=== PATIENT | male | born 1990 | race Caucasian/White ===

== ENCOUNTER 2017-11-22 18:19 | Emergency (ER) | payer OTHER ==
[2017-11-22] MEDS ORDERED: MAG HYDROX/AL HYDROX/SIMETH SUSP 30 ML UDCUP PO ONE (19:15)
[2017-11-22] MEDS ORDERED: LIDOCAINE 2% VISCOUS SOLN 20 ML UDCUP PO ONE (19:15)
--- NOTE | 2017-11-22 19:17 | ER Document Report ---
ED Medical Screen (RME) - General Chief Complaint: Epigastric pain, N/V Stated Complaint: STOMACH PAIN Time Seen by Provider: 11/22/17 19:08 Notes: 27-year-old male patient with epigastric discomfort off and on for the past 2 years and constant for the past 2 days. He does take Zantac 150 mg twice daily for his GERD. He did have his gallbladder removed in 2012. Brief exam shows epigastric tenderness although he claims the pain is up under the ribs on the right, palpating right upper quadrant and under the right lateral ribs is not uncomfortable or painful, but palpating the epigastric region is quite tender. He will be given a GI cocktail for his symptoms for its diagnostic and therapeutic effect. Work will be done to exclude something such as pancreatitis as the cause of his worsening pain. I have greeted and performed a rapid initial assessment of this patient. A comprehensive ED assessment and evaluation of the patient, analysis of test results and completion of the medical decision making process will be conducted by additional ED providers. TRAVEL OUTSIDE OF THE [place] IN LAST 30 DAYS: No - Related Data Allergies/Adverse Reactions: No Known Allergies Allergy (Unverified 11/22/17 18:24) Home Medications: Current Home Medications Ranitidine HCl 150 mg PO BID 11/22/17 [History] Past Medical History - Social History Chew tobacco use (# tins/day): Yes Frequency of alcohol use: Social Drug Abuse: None Renal/ Medical History: Denies: Hx Peritoneal Dialysis GI Medical History: Reports: Hx Gastroesophageal Reflux Disease Past Surgical History: Reports: Hx Abdominal Surgery Physical Exam - Vital signs Vitals: Temp Pulse Resp BP Pulse Ox 98.9 F 61 16 147/80 H 100 11/22/17 18:27 11/22/17 18:27 11/22/17 18:27 11/22/17 18:27 11/22/17 18:27 Course - Vital Signs Vital signs: Temp Pulse Resp BP Pulse Ox 98.9 F 61 16 147/80 H 100 11/22/17 18:27 11/22/17 18:27 11/22/17 18:27 11/22/17 18:27 11/22/17 18:27
[2017-11-22 20:09] LABS: ABSOLUTE BASOPHILS # (AUTO) 0.1 10^3/uL (0.0-0.2); ABSOLUTE EOSINOPHILS # (AUTO) 0.1 10^3/uL (0.0-0.6); ABSOLUTE LYMPHOCYTES (AUTO) 1.8 10^3/uL (0.5-4.7); ABSOLUTE MONOCYTES (AUTO) 0.8 10^3/uL (0.1-1.4); ABSOLUTE NEUT (AUTO) 10.2 10^3/uL (1.7-8.2); BASOPHILS % (AUTO) 0.4 % (0-2); HEMATOCRIT 44.8 % (37.9-51.0); HEMOGLOBIN 15.2 g/dL (13.5-17.0); LYMPHOCYTES % (AUTO) 13.7 % (13-45); MEAN CORPUSCULAR HEMOGLOBIN 31.3 pg (27.0-33.4); MEAN CORPUSCULAR HGB CONC 33.9 g/dL (32.0-36.0); MEAN CORPUSCULAR VOLUME 92 fl (80-97); MONOCYTES % (AUTO) 6.4 % (3-13); PLATELET COUNT 326 10^3/uL (150-450); RED BLOOD COUNT 4.86 10^6/uL (4.35-5.55); RED CELL DISTRIBUTION WIDTH 13.4 % (11.5-14.0); SEGMENTED NEUTROPHILS % (AUTO) 78.5 % (42-78); TOTAL CELLS COUNTED % (AUTO) 100 %
[2017-11-22 20:24] LABS: ALANINE AMINOTRANSFERASE 551 U/L (21-72); ALBUMIN 4.7 g/dL (3.5-5.0); ALKALINE PHOSPHATASE 153 U/L (38-126); ANION GAP 14 (5-19); ASPARTATE AMINO TRANSFERASE 506 U/L (17-59); BILIRUBIN,DIRECT 1.1 mg/dL (0.0-0.4); BILIRUBIN,TOTAL 1.6 mg/dL (0.2-1.3); BLOOD UREA NITROGEN 12 mg/dL (7-20); CALCIUM 9.9 mg/dL (8.4-10.2); CARBON DIOXIDE 26 mmol/L (22-30); CHLORIDE 105 mmol/L (98-107); GLUCOSE 115 mg/dL (75-110); LIPASE 61.3 U/L (23-300); POTASSIUM 4.4 mmol/L (3.6-5.0); SODIUM 144.7 mmol/L (137-145); TOTAL PROTEIN 7.8 g/dL (6.3-8.2)
--- NOTE | 2017-11-22 20:50 | ER Document Report ---
ED GI/ - General Chief Complaint: Epigastric pain, N/V Stated Complaint: STOMACH PAIN Time Seen by Provider: 11/22/17 19:08 Mode of Arrival: Ambulatory Information source: Patient TRAVEL OUTSIDE OF THE [place] IN LAST 30 DAYS: No - HPI Patient complains to provider of: Abdominal pain, Vomiting Onset: Yesterday Timing/Duration: Gradual Quality of pain: Cramping, Dull Severity at maximum: Moderate Severity in ED: Moderate Context: denies: Bad food, Lifting, Out of the country travel, , Recent trauma Location: Epigastric, RUQ Associated symptoms: Chills, Nausea, Vomiting. denies: Blood in emesis, Constipation, Diarrhea, Fever Exacerbated by: Movement, Deep breathing, Other - G.I. COCKTAIL GIVEN @ [employer] Relieved by: Denies Similar symptoms previously: Yes - PRIOR TO GB REMOVAL, ANF INFREQUENTLY SINCE. Recently seen / treated by doctor: No - Related Data Allergies/Adverse Reactions: No Known Allergies Allergy (Unverified 11/22/17 18:24) Home Medications: Current Home Medications Ranitidine HCl 150 mg PO BID 11/22/17 [History] Past Medical History - General Information source: Patient - Social History Smoking Status: Current Every Day Smoker Chew tobacco use (# tins/day): Yes Frequency of alcohol use: Social Drug Abuse: None Lives with: Spouse/Significant other Family History: None Patient has suicidal ideation: No Patient has homicidal ideation: No - Past Medical History Cardiac Medical History: Reports: None Pulmonary Medical History: Reports: None EENT Medical History: Reports: None Neurological Medical History: Reports: None Endocrine Medical History: Reports: None Renal/ Medical History: Reports: None. Denies: Hx Peritoneal Dialysis Malignancy Medical History: Reports None GI Medical History: Reports: Hx Gastroesophageal Reflux Disease. Denies: Hx Cirrhosis, Hx Hepatitis, Hx Liver Failure, Hx Pancreatitis Musculoskeltal Medical History: Reports None Psychiatric Medical History: Reports: None Past Surgical History: Reports: Hx Abdominal Surgery, Hx Cholecystectomy - LAPAROSCOPIC Review of Systems - Review of Systems Constitutional: See HPI, Chills EENT: No symptoms reported Cardiovascular: No symptoms reported Respiratory: No symptoms reported Gastrointestinal: See HPI Genitourinary: No symptoms reported Musculoskeletal: No symptoms reported Skin: No symptoms reported Neurological/Psychological: No symptoms reported Physical Exam - Vital signs Vitals: Temp Pulse Resp BP Pulse Ox 98.9 F 61 16 147/80 H 100 11/22/17 18:27 11/22/17 18:27 11/22/17 18:27 11/22/17 18:27 11/22/17 18:27 Interpretation: Normal. No: Tachycardic, Tachypneic, Febrile - General General appearance: Appears well In distress: None - HEENT Head: Normocephalic Eyes: Normal Conjunctiva: Normal. No: Icteric Ears: Normal Nasal: Normal Mouth/Lips: Normal Mucous membranes: Normal Pharynx: Normal Neck: Normal - Respiratory Respiratory status: No respiratory distress Breath sounds: Normal - Cardiovascular Rhythm: Regular Heart sounds: Normal auscultation Murmur: No - Abdominal Inspection: Normal, Obese Distension: No distension Bowel sounds: Hypoactive Tenderness: Tender - UNDER RCM - Back Back: Normal - Extremities General upper extremity: Normal inspection General lower extremity: Normal inspection - Neurological Neuro grossly intact: Yes Cognition: Normal Orientation: AAOx4 - Psychological Associated symptoms: Normal affect, Normal mood - Skin Skin Temperature: Warm Skin Moisture: Dry Skin Color: Normal Skin Turgor: Elastic Course - Vital Signs Vital signs: Temp Pulse Resp BP Pulse Ox 98.9 F 57 L 16 141/79 H 99 11/22/17 18:27 11/22/17 22:26 11/22/17 22:26 11/22/17 22:26 11/22/17 22:26 - Laboratory Result Diagrams: 11/22/17 19:45 11/22/17 19:45 Laboratory results interpreted by me: 11/22/17 11/22/17 19:45 19:45 WBC 13.0 H Seg Neutrophils % 78.5 H Absolute Neutrophils 10.2 H Glucose 115 H Total Bilirubin 1.6 H Direct Bilirubin 1.1 H AST 506 H ALT 551 H Alkaline Phosphatase 153 H Discharge - Discharge Clinical Impression: Abnormal liver function tests Abdominal pain Qualifiers: Abdominal location: epigastric Qualified Code(s): R10.13 - Epigastric pain Vomiting Qualifiers: Vomiting type: unspecified Vomiting Intractability: non-intractable Nausea presence: with nausea Qualified Code(s): R11.2 - Nausea with vomiting, unspecified Condition: Stable Disposition: HOME, SELF-CARE Instructions: Abdominal Pain ([facility]), Antinausea Medication ([facility]), Oral Narcotic Medication ([facility]), Liver Function Abnormality ([facility]), Low-Fat Diet ([facility]) Additional Instructions: REST, DRINK PLENTY OF FLUIDS. EAT A LOW-FAT, HIGH-CARBOHYDRATE DIET. TAKE RANITIDINE, 150 mg TWICE A DAY. YOU MAY TAKE ZOFRAN FOR NAUSEA CONTROL IF NEEDED. YOU MAY TAKE DILAUDID IF NEEDED FOR PAIN CONTROL, OR IBUPROFEN FOR LESS SEVERE PAIN. FOLLOW UP WITH DR. PHELPS OR DR. DELATORRE OR DR. BACH, CALL TOMORROW TO SET UP APPOINTMENT. RETURN TO E.R. IF PROBLEMS, ANY TIME. Prescriptions: Hydromorphone HCl [Dilaudid 2 Mg Tablet] 2 mg PO Q4HP PRN #10 tablet PRN Reason: For Pain Forms: Return to Work Referrals: BOB PHELPS MD [ACTIVE STAFF] - Follow up as needed CHANDLER DELATORRE MD [ACTIVE STAFF] - Follow up as needed TERRI JESUS MD [ACTIVE STAFF] - Follow up as needed
--- NOTE | 2017-11-22 21:49 | RADIOLOGY REPORT (SQ) ---
EXAM DESCRIPTION: U/S ABDOMEN LIMITED W/O DOP COMPLETED DATE/TIME: 11/22/2017 9:35 pm REASON FOR STUDY: RUQ, s/p choley, markedly elevated LFT's, RUQ pain COMPARISON: None. TECHNIQUE: Dynamic and static grayscale images acquired of the abdomen and recorded on PACS. Additio nal selected color Doppler and spectral images recorded. LIMITATIONS: Limiting body habitus. FINDINGS: PANCREAS: Pancreas not well demonstrated. No gross regional mass or fluid detected. LIVER: Borderline enlarged, just under 19 cm. Dense echogenic tissue throughout suggests steatosis. No gross mass, however back ground fatty change and suboptimal penetration with ultrasound limits. LIVER VASCULATURE: Normal directional flow of the main portal vein and hepatic veins. GALLBLADDER: Surgically absent. ULTRASOUND-DETECTED URIARTE'S SIGN: Not applicable. INTRAHEPATIC DUCTS AND COMMON DUCT: CBD and intrahepatic ducts normal caliber. No filling defects. INFERIOR VENA CAVA: Normal flow. AORTA: No aneurysm. RIGHT KIDNEY: Normal size. Normal echogenicity. No solid or suspicious masses. No hydronephrosis. No calcifications. PERITONEAL AND RIGHT PLEURAL SPACE: No ascites or effusions. OTHER: No other significant findings. IMPRESSION: Limited study reveals status post cholecystectomy without gross duct dilatation. Fatty prominent liver. TECHNICAL DOCUMENTATION: JOB ID: [id number] [employer]- All Rights Reserved
[2017-11-22] MEDS ORDERED: ONDANSETRON 4 MG TAB.RAPDIS PO ONE (22:23)
[2017-11-22] MEDS ORDERED: HYDROMORPHONE HCL INJ/PF 2 MG/ML AMPULE IV ONE (22:23)
[2017-11-22] MEDS ORDERED: HYDROMORPHONE HCL 2 MG TABLET PO ONE ×2 (22:28→23:26)
[2017-11-22] MEDS ORDERED: ONDANSETRON ODT 4 MG TAB (6 TAB/ER DISP) PO PRN (23:20)
[2017-11-22 23:45] VITALS: BP 132/76
[2017-11-24 05:39] LABS: HEPATITIS A AB IGM Negative (Negative); HEPATITIS B CORE AB IGM Negative (Negative); HEPATITS B SURFACE ANTIGEN Negative (Negative)
[2017-11-24 07:39] LABS: HEPATITIS C VIRUS ANTIBODY <0.1 s/co ratio (0.0-0.9)
== END 2017-11-22 23:45 | disposition home or self-care (01) ==
LOC: ER 18:19
DX: R10.13 Epigastric pain (principal); R10.11 Right upper quadrant pain; R11.2 Nausea with vomiting, unspecified; R79.89 Other specified abnormal findings of blood chemistry; R68.83 Chills (without fever); F17.200 Nicotine dependence, unspecified, uncomplicated; Z90.49 Acquired absence of other specified parts of digestive tract
CPT/HCPCS: 99284; 36415; 83690; 85025; 80053; 80074; 76705; S0119; J3490

== ENCOUNTER 2019-12-27 11:32 | Emergency (ER) | payer SELFPAY ==
--- NOTE | 2019-12-27 13:34 | ER Document Report ---
HPI - HPI Patient complains to provider of: Left foot pain Time Seen by Provider: 12/27/19 13:30 Onset: Yesterday Onset/Duration: Gradual Quality of pain: Achy Pain Level: 4 Context: Patient presents complaining of left foot pain to the first metatarsal. Patient denies any fever or known injury. Patient does have a history of gout and suspects the same today. Associated Symptoms: Other. denies: Fever Exacerbated by: Movement, Walking Relieved by: Denies Similar symptoms previously: Yes Recently seen / treated by doctor: No - ROS ROS below otherwise negative: Yes Systems Reviewed and Negative: Yes All other systems reviewed and negative - CONSTITUTIONAL Constitutional: DENIES: Fever, Chills - GASTROINTESTINAL Gastrointestinal: DENIES: Nausea - MUSCULOSKELETAL Musculoskeletal: REPORTS: Extremity pain, Swelling - DERM Skin Color: Erythema Skin Problems: None Past Medical History - General Information source: Patient - Social History Smoking Status: Current Every Day Smoker Frequency of alcohol use: Occasional Drug Abuse: None 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 IN LAST 30 DAYS: No - HEENT HEENT: Atraumatic, Normocephalic - NECK Neck: Normal Inspection, Supple - RESPIRATORY Respiratory: Breath Sounds Normal, No Respiratory Distress - CARDIOVASCULAR Cardiovascular: Regular Rate, Regular Rhythm Pulses: Normal: Dorsalis pedis - BACK Back: Normal Inspection - MUSCULOSKELETAL/EXTREMETIES Musculoskeletal/Extremeties: MAEW, Tender - Tenderness to left foot first metatarsal with 2+ swelling, very mild erythema, Edema - NEURO Level of Consciousness: Awake, Alert, Appropriate Motor/Sensory: No Motor Deficit, No Sensory Deficit - DERM Integumentary: Warm, Dry, No Rash Course - Re-evaluation Re-evalutation: 12/27/19 13:37 Patient presents with symptoms worrisome for gout flareup. Discussed diet changes. Patient encouraged to follow-up with a primary doctor telephone quotation clerk for any persistent pain or problems. - Vital Signs Vital signs: Temp Pulse Resp BP Pulse Ox 98.5 F 71 20 125/85 100 12/27/19 13:13 12/27/19 13:13 12/27/19 13:13 12/27/19 13:13 12/27/19 13:13 Discharge - Discharge Clinical Impression: Gout Qualifiers: Gout site: foot Gout etiology: unspecified cause Chronicity: acute Laterality: left Qualified Code(s): M10.9 - Gout, unspecified Condition: Stable Disposition: HOME, SELF-CARE Instructions: Gout ([facility]), Gout Diet ([facility]) Additional Instructions: Return immediately for any new or worsening symptoms Followup with your primary care provider, call tomorrow to make a followup appointment Avoid foods high in purine to minimize flareups Prescriptions: Colchicine [Colcrys 0.6 mg Tablet] 0.6 mg PO ASDIR #3 tablet Indomethacin [Indocin 50 Mg Capsule] 50 mg PO TID PRN #15 capsule PRN Reason: Referrals: [facility] [Provider Group] - Follow up as needed MADY MATOS DPM [ACTIVE STAFF] - Follow up as needed RENZO HACKETT DPM [ACTIVE STAFF] - Follow up as needed
[2019-12-27 13:40] VITALS: BP 127/88
== END 2019-12-27 13:37 | disposition home or self-care (01) ==
LOC: ER 11:32
DX: M10.9 Gout, unspecified (principal); M79.672 Pain in left foot; F17.200 Nicotine dependence, unspecified, uncomplicated
CPT/HCPCS: 99283